=== PATIENT | female | born 1985 | race Caucasian/White ===

== ENCOUNTER 2020-12-27 06:10 | Emergency (ER) | payer OTHER ==
[2020-12-27 06:45] LABS: CHLORIDE,CL 103 mEq/L (98-106); SODIUM,NA 139 mEq/L (136-145)
--- NOTE | 2020-12-27 06:47 | EDM.PDOC ---
ED HPI GENERAL MEDICAL PROBLEM - General Chief Complaint: General Stated Complaint: vertigo, abd pain, MONIQUE Time Seen by Provider: 12/27/20 06:26 Source of Information: Reports: Patient History Limitations: Reports: No Limitations - History of Present Illness INITIAL COMMENTS - FREE TEXT/NARRATIVE: This patient is a 35 year old female that presents to the ER. The patient reports that yesterday morning she woke up and had some dizziness. Patient reports yesterday as the day went on that she began to feel more dizzy, but mostly with positional changes especially moving her head. She reports that last night she was watching a moving and she began to feel nauseated, "pit sensation in stomach", vomited x1, felt dizzy with it. She reports she had a few episodes of dizziness. She reports this morning still having the dizziness. The patient reports having a global headache as well with the dizziness. Patient denies runny nose, congestion, drainage, sore throat, chest pain, shortness of breath, abd pain now, back pain, urinary/bowel changes, rashes. She is alert and oriented. GCS 15. Stroke score 0. Denies neck pain/stiffness. Onset Date: 12/26/20 Duration: Hour(s): (24) Location: Reports: Head, Abdomen Quality: Reports: Ache Severity: Mild Improves with: Reports: Rest Worsens with: Reports: Movement Associated Symptoms: Reports: Cough, Headaches. Denies: Confusion, Chest Pain, cough w sputum, Loss of Appetite, Malaise, Shortness of Breath, Syncope Headache Pain Score (Numeric/FACES): 7 Generalized Pain Score (Numeric/FACES): 5 - Related Data Allergies Allergy/AdvReac Type Severity Reaction Status Date / Time No Known Allergies Allergy Verified 12/27/20 06:10 Home Meds: Home Meds Citalopram Hydrobromide [Celexa] 10 mg PO DAILY 12/27/20 [History] Meclizine [Antivert] 12.5 mg PO TID #21 tab 12/27/20 [Rx] Past Medical History [employer] History: Reports: Psychiatric History: Reports: Anxiety - Past Surgical History Musculoskeletal Surgical History: Reports: Other (See Below) Other Musculoskeletal Surgeries/Procedures:: bilateral leg surgies, bone chip to toe, bone spur to leg Social & Family History - Tobacco Use Tobacco Use Status *Q: Never Tobacco User - Caffeine Use Caffeine Use: Reports: Coffee - Recreational Drug Use Recreational Drug Use: No ED ROS GENERAL - Review of Systems Review Of Systems: See Below Constitutional: Reports: No Symptoms. Denies: Fever, Chills, Malaise, Weakness, Fatigue HEENT: Reports: No Symptoms. Denies: Ear Pain, Nosebleed, Rhinitis, Sinus Problem, Throat Pain, Throat Swelling, Vision Change Respiratory: Reports: Cough (dry cough x2 days, infrequent per patient. ). Denies: Shortness of Breath, Wheezing, Pleuritic Chest Pain, Sputum, Hemoptysis Cardiovascular: Reports: No Symptoms. Denies: Chest Pain, Dyspnea on Exertion, Edema, Lightheadedness, Palpitations, Syncope Endocrine: Reports: No Symptoms GI/Abdominal: Reports: Abdominal Pain ("pit in stomach" not currently in ER. ), Nausea, Vomiting (x1). Denies: Diarrhea, Decreased Appetite : Reports: No Symptoms. Denies: Dysuria, Flank Pain, Frequency, Incontinence, Pain, Urgency, Urinary Retention Musculoskeletal: Reports: No Symptoms. Denies: Neck Pain, Back Pain Skin: Reports: No Symptoms Neurological: Reports: Dizziness (with changing positions of the head. IMproved with patient laying to the left side. ), Headache. Denies: Confusion, Numbness, Paresthesia, Pre-Existing Deficit, Seizure, Syncope, Tingling, Tremors, Trouble Speaking, Difficulty Walking, Weakness, Change in Speech, Gait Disturbance Psychiatric: Reports: Anxiety Hematologic/Lymphatic: Reports: No Symptoms Immunologic: Reports: No Symptoms ED EXAM, GENERAL - Physical Exam Exam: See Below Exam Limited By: No Limitations General Appearance: Alert, WD/WN, No Apparent Distress, Anxious Eye Exam: Bilateral Eye: EOMI, Normal Inspection, PERRL Ears: Normal External Exam, Normal Canal, Hearing Grossly Normal, Normal TMs Ear Exam: Bilateral Ear: Auricle Normal, Canal Normal, TM normal Nose: Normal Inspection, Normal Mucosa, No Blood Throat/Mouth: Normal Inspection, Normal Lips, Normal Teeth, Normal Gums, Normal Oropharynx, Normal Voice, No Airway Compromise Head: Atraumatic, Normocephalic Neck: Normal Inspection, Supple, Non-Tender, Full Range of Motion, Other (negative nuchal rigitiy. ) Respiratory/Chest: No Respiratory Distress, Lungs Clear, Normal Breath Sounds, No Accessory Muscle Use Cardiovascular: Normal Peripheral Pulses, Regular Rate, Rhythm, No Edema, No Gallop, No JVD, No Murmur, No Rub, Other (orthostatics normal. ) Peripheral Pulses: 2+: Radial (L), Radial (R), Posterior Tibial (L), Posterior Tibial (R) GI/Abdominal: Normal Bowel Sounds, Soft, Non-Tender, No Organomegaly, No Distention, No Abnormal Bruit, No Mass, Pelvis Stable (Female) Exam: Deferred Rectal (Female) Exam: Deferred Back Exam: Normal Inspection, Full Range of Motion. No: CVA Tenderness (L), CVA Tenderness (R) Extremities: Normal Inspection, Normal Range of Motion, Non-Tender, No Pedal Edema, Normal Capillary Refill Neurological: Alert, Oriented, CN II-XII Intact, Normal Cognition, Normal Gait, No Motor/Sensory Deficits, Other (GCS: 15. Stroke Score 0. ) Psychiatric: Normal Affect, Normal Mood Skin Exam: Warm, Dry, Intact, Normal Color, No Rash Lymphatic: No Adenopathy Course - Vital Signs Last Recorded V/S: Last Vital Signs Temp 98.2 F 12/27/20 06:11 Pulse 100 12/27/20 06:11 Resp 18 12/27/20 06:11 BP 131/79 12/27/20 06:11 Pulse Ox 100 12/27/20 06:11 Orthostatic Blood Pressure [ 118/80 Standing] Orthostatic Blood Pressure [ 128/72 Sitting] Orthostatic Blood Pressure [ 116/77 Supine] - Orders/Labs/Meds Orders: Active Orders 24 hr Category Date Time Status Orthostatic Vital Signs [RC] ASDIRECTED Care 12/27/20 06:44 Active Labs: Laboratory Tests 12/27/20 12/27/20 12/27/20 Range/Units 06:30 06:30 07:00 WBC 7.5 (5.0-10.0) 10^3/uL RBC 4.75 (4.00-5.50) 10^6/uL Hgb 14.0 (12.0-16.0) g/dL Hct 40.2 (37.0-47.0) % MCV 84.6 (82.0-94.0) fL MCH 29.5 (27.0-32.0) pg MCHC 34.8 (33.0-38.0) g/dL RDW Coeff of Caitlin 12.6 (11.0-15.0) % Plt Count 210 (150-400) 10^3/uL Neut % (Auto) 69.0 (35-85) % Lymph % (Auto) 21.7 (10-55) % [place] % (Auto) 8.5 (0-16) % Eos % (Auto) 0.5 (0-5) % Baso % (Auto) 0.3 (0-3) % Neut # (Auto) 5.17 (1.80-7.00) 10^3/uL Lymph # (Auto) 1.63 (1.00-4.80) 10^3/uL [place] # (Auto) 0.64 (0.00-0.80) 10^3/uL Eos # (Auto) 0.04 (0.00-0.45) 10^3/uL Baso # (Auto) 0.02 10^3/uL Sodium 139 (136-145) mEq/L Potassium 3.5 (3.5-5.0) mEq/L Chloride 103 (98-106) mEq/L Carbon Dioxide 24 (21-32) mmol/L BUN 12 (7-18) mg/dL Creatinine 0.7 (0.6-1.0) mg/dL Est Cr Clr Drug Dosing 117.23 mL/min Estimated GFR (MDRD) > 60 (>=60) mL/min Glucose 116 H (75-99) mg/dL Calcium 9.3 (8.4-10.1) mg/dL Total Bilirubin 0.9 (0.0-1.0) mg/dL AST 10 L (15-37) U/L ALT 14 (12-78) U/L Alkaline Phosphatase 61 (46-116) U/L Total Protein 7.6 (6.4-8.2) g/dL Albumin 4.1 (3.4-5.0) g/dL Amylase 40 (25-115) U/L Lipase 91 (73-393) U/L Urine Color Yellow (YELLOW) Urine Appearance Slightly cloudy (CLEAR) Urine pH >= 9.0 H (4.5-8.0) Ur Specific [place] 1.020 (1.003-1.020) Urine Protein 100 H (NEGATIVE) mg/dL Urine Glucose (UA) Negative (NEGATIVE) mg/dL Urine Ketones Negative (NEGATIVE) mg/dL Urine Occult Blood Negative (NEGATIVE) Urine Nitrite Negative (NEGATIVE) Urine Bilirubin Negative (NEGATIVE) Urine Urobilinogen 0.2 (0.2-1.0) EU/dL Ur Leukocyte Esterase Trace H (NEGATIVE) Urine RBC 0-5 (0-5) /HPF Urine WBC 0-5 (0-5) /HPF Ur Epithelial Cells Moderate H (NOT SEEN) /HPF Amorphous Sediment Moderate H (NOT SEEN) /HPF Urine Bacteria Few H (NOT SEEN) /HPF Urine HCG, Qual 12/27/20 Range/Units 07:00 WBC (5.0-10.0) 10^3/uL RBC (4.00-5.50) 10^6/uL Hgb (12.0-16.0) g/dL Hct (37.0-47.0) % MCV (82.0-94.0) fL MCH (27.0-32.0) pg MCHC (33.0-38.0) g/dL RDW Coeff of Caitlin (11.0-15.0) % Plt Count (150-400) 10^3/uL Neut % (Auto) (35-85) % Lymph % (Auto) (10-55) % [place] % (Auto) (0-16) % Eos % (Auto) (0-5) % Baso % (Auto) (0-3) % Neut # (Auto) (1.80-7.00) 10^3/uL Lymph # (Auto) (1.00-4.80) 10^3/uL [place] # (Auto) (0.00-0.80) 10^3/uL Eos # (Auto) (0.00-0.45) 10^3/uL Baso # (Auto) 10^3/uL Sodium (136-145) mEq/L Potassium (3.5-5.0) mEq/L Chloride (98-106) mEq/L Carbon Dioxide (21-32) mmol/L BUN (7-18) mg/dL Creatinine (0.6-1.0) mg/dL Est Cr Clr Drug Dosing mL/min Estimated GFR (MDRD) (>=60) mL/min Glucose (75-99) mg/dL Calcium (8.4-10.1) mg/dL Total Bilirubin (0.0-1.0) mg/dL AST (15-37) U/L ALT (12-78) U/L Alkaline Phosphatase (46-116) U/L Total Protein (6.4-8.2) g/dL Albumin (3.4-5.0) g/dL Amylase (25-115) U/L Lipase (73-393) U/L Urine Color (YELLOW) Urine Appearance (CLEAR) Urine pH (4.5-8.0) Ur Specific [place] (1.003-1.020) Urine Protein (NEGATIVE) mg/dL Urine Glucose (UA) (NEGATIVE) mg/dL Urine Ketones (NEGATIVE) mg/dL Urine Occult Blood (NEGATIVE) Urine Nitrite (NEGATIVE) Urine Bilirubin (NEGATIVE) Urine Urobilinogen (0.2-1.0) EU/dL Ur Leukocyte Esterase (NEGATIVE) Urine RBC (0-5) /HPF Urine WBC (0-5) /HPF Ur Epithelial Cells (NOT SEEN) /HPF Amorphous Sediment (NOT SEEN) /HPF Urine Bacteria (NOT SEEN) /HPF Urine HCG, Qual Negative Meds: Medications Discontinued Medications Generic Name Dose Route Start Last Admin Trade Name Freq PRN Reason Stop Dose Admin Meclizine HCl 12.5 mg 12/27/20 06:48 12/27/20 06:51 Meclizine 12.5 Mg Tab PO 12/27/20 06:49 12.5 mg ONETIME ONE Administration - Re-Assessments/Exams Free Text/Narrative Re-Assessment/Exam: 12/27/20 07:42 Patient dizziness is made worse with positional changes. No evidence during exam of cardiac or neurological deficits or abnormalities. Heidi maneuver performed in the ER on patient. No nystagmus on maneuver. Maneuver performed to bilateral sides. Patient reports with positional to the right and sitting up to the right that her dizziness was mildly improved, but present. Discussed with patient vertigo in great detail. Discussed other possible differentials, viral and less possible associated with cardiac and brain/neurological. Patient able to PO challenge water in the ER without vomiting or nausea. At this time, will disc harge patient. She denies any vomiting, no nausea, and no abdominal pain. Reports her headache and dizziness are improved some. Discussed when to return to the ER, she has voiced back this and understanding. She is to followup with her PCP early this week which she has agreed to do. Patient will return to ER for worsening or any other symptoms occur. Departure - Departure Time of Disposition: 07:41 Disposition: Home, Self-Care 01 Clinical Impression: Vertigo - Discharge Information *PRESCRIPTION DRUG MONITORING PROGRAM REVIEWED*: Not Applicable *COPY OF PRESCRIPTION DRUG MONITORING REPORT IN PATIENT MARTINEZ: Not Applicable Prescriptions: Meclizine [Antivert] 12.5 mg PO TID #21 tab Referrals: Pedro Li MD [Primary Care Provider] - Forms: ED Department Discharge Additional Instructions: Followup with your primary care provider this wee for a recheck Return to the ER for worsening of condition or any emergent concerns such as fever, vomiting, increase in pain, chest pain, shortness of breath, change in level of consciousness, weakness on one side of body, changes in speech, or any concerns. Increase fluid intake Rest Change positions slowly Meclizine 12.5mg 1 pill every 8 hours as needed for dizziness; [facility] Sepsis Event Note (ED) - Evaluation Sepsis Screening Result: No Definite Risk - Focused Exam Vital Signs: Vital Signs Temp Pulse Resp BP Pulse Ox 12/27/20 06:11 98.2 F 100 18 131/79 100 - My Orders Last 24 Hours: My Active Orders 12/27/20 06:44 Orthostatic Vital Signs [RC] ASDIRECTED - Assessment/Plan Last 24 Hours: My Active Orders 12/27/20 06:44 Orthostatic Vital Signs [RC] ASDIRECTED Plan: PLEASE SEE RN NOTE FOR PFSH
[2020-12-27] MEDS: Meclizine 12.5 MG Tab PO ONE (06:51)
== END 2020-12-27 07:45 | disposition home or self-care (01) ==
LOC: CC.ED 06:10
DX: R42 Dizziness and giddiness (principal)
CPT/HCPCS: 36415; 80053; 81001; 81025; 82150; 83690; 85025; 99284; A9270

== ENCOUNTER 2022-03-22 21:04 | Emergency (ER) | payer OTHER ==
[2022-03-22] MEDS: Hydrocortisone/Neomycin/Polymyxin B Otic Susp 10 ML Bottle EARRT SCH (21:38)
[2022-03-23] MEDS ORDERED: Hydrocortisone/Neomycin/Polymyxin B Otic Susp 10 ML Bottle EARRT SCH (08:00)
== END 2022-03-22 21:42 | disposition home or self-care (01) ==
LOC: CC.ED 21:04
DX: H60.311 Diffuse otitis externa, right ear (principal)
CPT/HCPCS: 99282; 99283; A9270

== ENCOUNTER 2022-06-09 17:00 | Emergency (ER) | payer OTHER ==
[2022-06-09] MEDS: Ketorolac 60 MG/2 ML SDV IM ONE (17:04)
[2022-06-09] MEDS: methylPREDNISolone Sodium Succinate 125 MG/2 ML SDV IM STA (17:23)
[2022-06-09] MEDS: Take Home: Cyclobenzaprine 10 MG Tab, 4 Tab Pack PO ONE (17:40)
[2022-06-09] MEDS: HYDROmorphone 1 MG/ML Syringe SUBCUT ONE (17:46)
[2022-06-09] MEDS: Ondansetron 4 MG Tab.DIS PO ONE (17:49)
[2022-06-09] MEDS: Take Home: Acetaminophen/HYDROcodone 325-5 MG, 2 Tab Pack PO ONE (17:51)
== END 2022-06-09 18:12 | disposition home or self-care (01) ==
LOC: CC.ED 17:00 → SUPCPDRO 17:00 → CC.ED 18:12
DX: G89.29 Other chronic pain (principal); M54.41 Lumbago with sciatica, right side; M54.42 Lumbago with sciatica, left side; Z79.899 Other long term (current) drug therapy
CPT/HCPCS: 96372; 99283; 99284; A9270; J1170; J1885; J2930

== ENCOUNTER 2022-12-30 00:45 | Emergency (ER) | payer OTHER ==
[2022-12-30] MEDS ORDERED: Sodium Chloride 0.9% 500 ML IV STA (01:20)
[2022-12-30] MEDS ORDERED: LORazepam 2 MG/ML Syringe IVPUSH ONE (01:20)
[2022-12-30] MEDS ORDERED: Take Home: LORazepam 0.5 MG Tab, 2 Tab Pack PO ONE (01:49)
== END 2022-12-30 02:18 | disposition home or self-care (01) ==
LOC: CC.ED 00:45
DX: F41.0 Panic disorder [episodic paroxysmal anxiety] (principal)
CPT/HCPCS: 96361; 96374; 99283-25; 99284; A9270-GY; J2060; J7040